=== PATIENT | female | born 1940 | race Caucasian/White ===

== ENCOUNTER 2020-04-10 18:51 | Observation (INO) ==
[2020-04-10] MEDS ORDERED: NORMAL SALINE 1,000 ML IV ONE (19:18)
[2020-04-10] MEDS ORDERED: ONDANSETRON HCL/PF 2 MG/ML VIAL IV ONE (19:18)
[2020-04-10 19:22] LABS: Hematocrit 40.9 % (37.0-47.0); Hemoglobin 13.4 gm/dL (12.5-16.0); Mean Cell Volume 97.6 fl (78-100); Mean Corpuscular Hgb Conc 32.8 g/dl (32-36); Mean Platelet Volume 10.9 fl (8-12.5); Neutrophil # 4.1 K/mm3 (1.3-6.0); Neutrophil % 64.2 % (42-75.0); Platelet Count 188 K/mm3 (150-450); Red Blood Count 4.19 M/mm3 (4.2-5.4); White Blood Count 6.4 K/mm3 (4.0-10.5)
[2020-04-10 19:23] LABS: Methemoglobin % 0.1 % (0.41-1.15)
[2020-04-10 19:39] LABS: Albumin * 3.4 gm/dl (3.4-5.0); Anion Gap 14.7 mmol/L (6.8-13.8); BUN/Creatinine Ratio 21.5 (9.0-21.6); Bilirubin, Total 0.6 mg/dL (0.0-1.1); Ca. Corrected For Albumin 9.8 mg/dL (8.4-10.2); Calcium * 9.6 mg/dL (7.9-10.9); Carbon Dioxide 24.2 mmol/L (24-32.6); Potassium 3.9 mmol/L (3.4-4.6)
--- NOTE | 2020-04-10 20:22 | ERNOTE ---
Dizziness ER Record Date of Service: 04/10/20 Presenting Symptoms: vertigo Time Seen by Provider: 04/10/20 19:05 Source: patient, family, RN notes reviewed Exam Limitations: no limitations Immunizations: IMMUNIZATION HX Immunizations Up to Date Yes History of Influenza Vaccine Yes Hx Pneumococcal Vaccination No Allergies/Adverse Reactions: Allergies Allergy/AdvReac Type Severity Reaction Status Date / Time niacin Allergy Intermediate Anaphylaxis Verified 04/10/20 18:58 Penicillins Allergy itching, Verified 04/10/20 18:58 urticaria Home Medications: HOME MEDICATIONS NK 04/10/20 [Last Taken Unknown] - History of Present Illness Narrative: Angélica is a 80-year-old female brought to the emergency department from home by her daughter for a sudden onset of extreme dizziness and nausea. The patient reports that she had been sewing in her basement for most of the afternoon when she suddenly started to feel dizzy. She had to go outside to get some air and had to sit down and scoot on the ground due to her dizziness. She reports that the dizziness is only present with movement. She has not had any vomiting thus far. She is concerned that there may be a gas leak in her house because there was an odor of sewer and inspector gas in her basement. Her has also had nausea and some vomiting over the past 2 or 3 days. Date (Duration): 04/10/20 Time (Timing): 18:00 Timing and Duration: sudden onset, still present Severity: max: severe Associated Symptoms: Present: nausea. Absent: hearing loss, ringing/roaring in ear, ear pain, headache, weakness Sense of movement: Present: spinning Decreased ability to stand/walk:: Present: difficult, off balance Usually:: Present: walks w/o assistance Modifying Factors - (Improves): Reports: other - rest Modifying Factors - (Worsens): Reports: changing position Prior Treament: Denies: recently seen, similar symptoms before Review of Systems - Review of Systems Constitutional: Absent: recent illness, fever, chills EYE: Absent: eye pain, vision changes ENT: Absent: ear pain, nose congestion, nasal drainage, sore throat Respiratory: Absent: shortness of breath, cough Cardiology: Absent: chest pain, syncope Gastrointestinal/Abdominal: Present: nausea. Absent: vomiting, diarrhea, abdominal pain Genitourinary: Present: no symptoms reported Musculoskeletal: Present: no symptoms reported Skin: Absent: rash, lesions Neurological: Present: dizziness/light-headedness. Absent: headache Endocrine: Present: no symptoms reported Hematologic/Lymphatic: Absent: easy bruising, easy bleeding Psych: Present: anxiety Medical History (Last Reviewed 04/10/20 @ 20:20 by Maliha Rosales NP) Anxiety Onset Date: ~2013 Depression Onset Date: ~2007 Fibromyalgia Onset Date: 08/29/13 GERD (gastroesophageal reflux disease) Onset Date: 08/29/13 Hyperlipidemia Onset Date: 08/29/13 Hypertension Onset Date: Unknown Osteoarthritis Onset Date: Unknown bilateral knees Peripheral neuropathy Onset Date: 08/29/13 Stress incontinence Onset Date: Unknown Allergic rhinitis Onset Date: ~2013 Shortness of breath Onset Date: Unknown Solitary cyst of breast Onset Date: Unknown right Surgical History: Surgical History (Last Reviewed 04/10/20 @ 20:20 by Maliha Rosales NP) History of arthroscopic knee surgery Onset Date: ~1989-bilateral History of breast biopsy Onset Date: Unknown left History of carpal tunnel release Onset Date: ~1989-right History of cataract surgery Onset Date: Unknown bilateral History of section Onset Date: ~1971 History of colonoscopy Onset Date: 08/26/18 08/27/06 Tinguely-tubulovillous adenoma, hyperplastic polyp. Sigmoid diverticulosis. 08/26/18 Ayo-tubulovillous adenoma w/evidence of severe dysplasia. Recheck 3 yrs. History of esophagogastroduodenoscopy (EGD) Onset Date: 07/01/07 07/01/07 Tinguely-hiatal hernia, mild chronic gastritis. History of hemorrhoidectomy Onset Date: ~12/2018 ANNA Brito-hemorrhoid banding x1 History of knee replacement, total Onset Date: ~08/2004 bilateral History of rhinoplasty Onset Date: ~2002 History of sinus surgery Onset Date: 05/18/99 Janeth Hx of laparoscopic gastric banding Onset Date: Unknown Rectal exam Onset Date: 04/20/19 04/20/19 Siri-rectal exam under anesthesia-rectal mass-adenocarcinoma, tubulovillous adenoma. Refer to [facility] Family History: Family History (Last Reviewed 04/10/20 @ 20:20 by Maliha Rosales NP) Father , age 54-[place] No problems noted. Mother , age 85-dementia Rheumatoid arthritis Alzheimers disease Hypertension Cancer breast ca-dx age 70's Grandfather Cancer maternal-prostate Social History: (Last Reviewed 04/10/20 @ 20:20 by Maliha Rosales NP) Social History: Marital status: household members: spouse number of children: 2 current occupational status: retired Service: No Tobacco: Smoking Status: Never smoker Alcohol: alcohol intake: current Substance Use: substance use type: does not use Dietary Habits: caffeine: Yes Personal Safety: victim of physical abuse: No victim of emotional abuse: No Physical Exam - Physical Exam General Appearance: Present: wd/wn, alert, moderate distress Head Exam: Present: normal inspection, no evidence of injury Eye Exam: Other: bilateral - unable to assess, keeps eyes closed d/t vertigo Ears, Nose, Throat: Present: normal ENT inspection, normal pharynx Neck: Present: normal inspection, nontender, supple Respiratory: Present: no respiratory distress, normal breath sounds, no accessory muscle use, lungs clear Cardiovascular/Chest: Present: no murmur, normal peripheral pulses, irregularly irregular Gastrointestinal/Abdominal: Present: nontender, nondistended, soft Extremity Exam: Present: normal inspection, non-tender, extremity edema - bilateral lower extremities Neurological Exam: Present: alert, oriented, normal mood/affect, no motor/sensory deficits Skin Exam: Present: warm/dry, pallor Progress - Results and Orders Patient's Lab Results:: I have reviewed the patient's lab results. - Vital Signs Patient's Vital Signs:: I have reviewed the patient's vital signs. Vital Signs: Vital Signs 04/10/20 18:55 04/10/20 19:06 04/10/20 19:31 Temperature 36.8 C Pulse Rate 93 93 80 Respiratory Rate 16 16 Blood Pressure 191/108 H 180/98 H O2 Sat by Pulse Oximetry 98 98 04/10/20 20:10 Temperature Pulse Rate 77 Respiratory Rate 16 Blood Pressure 165/78 H O2 Sat by Pulse Oximetry 98 - Progress/Reassessment Chief Complaint: Dizziness Progress:: Unchanged Plan - Plan Plan: The patient was given IV fluids and Zofran. She then was assisted to the bathroom where she continued to have severe vertigo with movement and began vomiting. She insists that she is unable to go home. I contacted Dr. Renner, her PCP, and she will be admitted to observation. Departure Clinical Impression: Acute vertigo with vomiting and inability to stand - Departure Disposition: Still a patient Condition: Stable Referrals: Laurel Renner DO [Primary Care Provider] -
[2020-04-10] MEDS ORDERED: ONDANSETRON 4 MG TAB.RAPDIS PO PRN (21:53)
[2020-04-10] MEDS ORDERED: ACETAMINOPHEN 325 MG TABLET PO PRN (21:53)
--- NOTE | 2020-04-11 08:15 | HPDIS ---
Chief Complaint - Chief Complaint Date of Service: 04/11/20 Time of Service: 08:15 Chief Complaint: dizziness History of Present Illness: Patient with rectal adenocarcinoma, currently in remission. Was in the basement all day sewing yesterday, and when she got up, everything was spinning. She called for her , and they both fell over. The dizziness came on suddenly. She was thinking there was a gas leak in the house. She called the [facility], and there was no gas leak. No fevers. No changes in her appetite or fluid intake. No recent medication changes. 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 Vomited on the way to the ED. Workup in the ED showed carboxyhemoglobin levels not significantly elevated at 2.0. CO2 was normal on CMP at 24.2. Her BP was high at 191/108 initially. No other lab abnormalities. EKG not done in the ED, and has been ordered this morning. On my assessment, her dizziness has resolved. She denies complaints, other than needing help caring for her . Medical History (Last Updated 04/10/20 @ 21:[address] RN) Colon cancer Anxiety Onset Date: ~2013 Depression Onset Date: ~2007 Fibromyalgia Onset Date: 08/29/13 GERD (gastroesophageal reflux disease) Onset Date: 08/29/13 Hyperlipidemia Onset Date: 08/29/13 Hypertension Onset Date: Unknown Osteoarthritis Onset Date: Unknown bilateral knees Peripheral neuropathy Onset Date: 08/29/13 Stress incontinence Onset Date: Unknown Allergic rhinitis Onset Date: ~2013 Shortness of breath Onset Date: Unknown Solitary cyst of breast Onset Date: Unknown right Surgical History: Surgical History (Last Reviewed 04/10/20 @ 21:[address] RN) History of arthroscopic knee surgery Onset Date: ~1989 Chaidez-bilateral History of breast biopsy Onset Date: Unknown left History of carpal tunnel release Onset Date: ~1989 Chaidez-right History of cataract surgery Onset Date: Unknown bilateral History of section Onset Date: ~1971 History of colonoscopy Onset Date: 08/26/18 08/27/06 Tinguely-tubulovillous adenoma, hyperplastic polyp. Sigmoid diverticulosis. 08/26/18 Ayo-tubulovillous adenoma w/evidence of severe dysplasia. Recheck 3 yrs. History of esophagogastroduodenoscopy (EGD) Onset Date: 07/01/07 07/01/07 Tinguely-hiatal hernia, mild chronic gastritis. History of hemorrhoidectomy Onset Date: ~12/2018 Daryl [place]-hemorrhoid banding x1 History of knee replacement, total Onset Date: ~08/2004 bilateral History of rhinoplasty Onset Date: ~2002 History of sinus surgery Onset Date: 05/18/99 Janeth Hx of laparoscopic gastric banding Onset Date: Unknown Rectal exam Onset Date: 04/20/19 04/20/19 Bagan-rectal exam under anesthesia-rectal mass-adenocarcinoma, tubulovillous adenoma. Refer to [facility] Family History: Family History (Last Reviewed 04/10/20 @ 21:[address] RN) Father , age 54-[place] No problems noted. Mother , age 85-dementia Rheumatoid arthritis Alzheimers disease Hypertension Cancer breast ca-dx age 70's Grandfather Cancer maternal-prostate Social History: (Last Reviewed 04/10/20 @ 21:[address] RN) Social History: Marital status: household members: spouse number of children: 2 current occupational status: retired Service: No Tobacco: Smoking Status: Never smoker Alcohol: alcohol intake: current Substance Use: substance use type: does not use Dietary Habits: caffeine: Yes Personal Safety: victim of physical abuse: No victim of emotional abuse: No Review Of Systems (GEN) - Review of Systems Generalized/Overall Review: Absent: Fever Respiratory: Absent: Cough, Shortness of Breath Cardiac: Present: Edema - intermittent. hasn't been using her lasix. Absent: Chest Pain Abdominal: Present: Vomiting. Absent: Abdominal Pain Genitourinary: Present: No Symptoms Reported Neurological: Present: Anxiety - regarding 's health Skin: Present: No Symptoms Reported Immunizations: IMMUNIZATION HX Immunizations Up to Date Yes History of Influenza Vaccine Yes Hx Pneumococcal Vaccination No Allergies/Adverse Reactions: Allergies Allergy/AdvReac Type Severity Reaction Status Date / Time niacin Allergy Intermediate Anaphylaxis Verified 04/10/20 18:58 Penicillins Allergy itching, Verified 04/10/20 18:58 urticaria Home Medications: HOME MEDICATIONS NK 04/10/20 [Last Taken Unknown] Exam - Exam Vital Signs: Vital Signs - Last Taken Temp 37.3 C 04/11/20 06:44 Pulse 74 04/11/20 06:44 Resp 14 04/11/20 06:44 BP 145/64 04/11/20 06:44 Pulse Ox 98 04/11/20 06:44 Constitutional: Present: Alert, Cooperative, No distress Respiratory: Present: lungs clear, normal breath sounds, no respiratory distress Cardiovascular/Chest: Present: regular rate, rhythm Abdomen: Present: soft, nontender Extremity: Absent: lower extremity edema Eye contact: Present: cooperative, good eye contact Thoughts: Present: normal thought pattern Diagnostic Studies: Abnormal Lab Results 04/10/20 04/10/20 04/10/20 Range/Units 19:07 19:07 19:15 RBC 4.19 L (4.2-5.4) M/mm3 MCH 32.0 H (27-31) pg Monocytes % 11.3 H (0.0-9) % Lymphocytes # 1.36 L (1.5-3.5) k/mm3 Carboxyhemoglobin 2.0 H (0.5-1.5) % Methemoglobin 0.1 L (0.41-1.15) % Anion Gap 14.7 H (6.8-13.8) mmol/L Random Glucose 123 H (70-110) mg/dL Laboratory Results WBC 6.4 K/mm3 (4.0-10.5) 04/10/20 19:15 RBC 4.19 M/mm3 (4.2-5.4) L 04/10/20 19:15 Hgb 13.4 gm/dL (12.5-16.0) 04/10/20 19:15 Hct 40.9 % (37.0-47.0) 04/10/20 19:15 MCV 97.6 fl (78-100) 04/10/20 19:15 MCH 32.0 pg (27-31) H 04/10/20 19:15 MCHC 32.8 g/dl (32-36) 04/10/20 19:15 RDW 13.0 % (11.5-14.0) 04/10/20 19:15 Plt Count 188 K/mm3 (150-450) 04/10/20 19:15 MPV 10.9 fl (8-12.5) 04/10/20 19:15 Immature Gran % (Auto) 0.20 % (0.001-0.429) 04/10/20 19:15 Immature Gran # (Auto) 0.01 K/mm3 (0.000-0.0310) 04/10/20 19:15 Neutrophils % 64.2 % (42-75.0) 04/10/20 19:15 Lymphocytes % 21.4 % (20-51) 04/10/20 19:15 Monocytes % 11.3 % (0.0-9) H 04/10/20 19:15 Eosinophils % 2.4 % (0.0-3.0) 04/10/20 19:15 Basophils % 0.5 % (0.0-1.0) 04/10/20 19:15 Nucleated RBC % 0.0 k/mm3 (0-1) 04/10/20 19:15 Neutrophils # 4.1 K/mm3 (1.3-6.0) 04/10/20 19:15 Lymphocytes # 1.36 k/mm3 (1.5-3.5) L 04/10/20 19:15 Monocytes # 0.7 k/mm3 (0.0-1.0) 04/10/20 19:15 Eosinophils # 0.2 k/mm3 (0.0-0.7) 04/10/20 19:15 Absolute Basophils 0.0 k/mm3 (0.0-0.1) 04/10/20 19:15 Carboxyhemoglobin 2.0 % (0.5-1.5) H 04/10/20 19:07 Methemoglobin 0.1 % (0.41-1.15) L 04/10/20 19:07 Sodium 138 mmol/L (132-142) 04/10/20 19:07 Plasma Sodium 138 mmol/L (130-142) 04/10/20 19:07 Potassium 3.9 mmol/L (3.4-4.6) 04/10/20 19:07 Chloride 103 mmol/L (97-106) 04/10/20 19:07 Carbon Dioxide 24.2 mmol/L (24-32.6) 04/10/20 19:07 Anion Gap 14.7 mmol/L (6.8-13.8) H 04/10/20 19:07 BUN 17 mg/dL (3-23) 04/10/20 19:07 Creatinine 0.79 mg/dL (0.4-1.4) 04/10/20 19:07 Est GFR (Non-Af Amer) 75 mL/min (60-130) 04/10/20 19:07 BUN/Creatinine Ratio 21.5 (9.0-21.6) 04/10/20 19:07 Random Glucose 123 mg/dL (70-110) H 04/10/20 19:07 Calcium 9.6 mg/dL (7.9-10.9) 04/10/20 19:07 Calcium Adj for Albumin 9.8 mg/dL (8.4-10.2) 04/10/20 19:07 Total Bilirubin 0.6 mg/dL (0.0-1.1) 04/10/20 19:07 AST 33 U/L (0-48) 04/10/20 19:07 ALT 19 U/L (19-67) 04/10/20 19:07 Alkaline Phosphatase 96 U/L (50-170) 04/10/20 19:07 Total Protein 7.0 gm/dL (6.2-8.2) 04/10/20 19:07 Albumin 3.4 gm/dl (3.4-5.0) 04/10/20 19:07 Assessment/Plan - Narrative Narrative: Patient presented to the ED with acute onset dizziness, that resolved without intervention. Her dizziness was so severe in the ED that she did not feel safe going home. No concerning findings on labwork in the ED. EKG showed 1st degree heart block. She was observed overnight to ensure she could tolerate po intake. In the morning, she was back to her baseline. Her BP was initially high, which also improved without intervention, but will need to watch this at upcoming outpatient visits. - Assessment/Plan (1) Acute vertigo with vomiting and inability to stand Problem: Acute (2) Elevated blood pressure reading Problem: Acute (3) Edema Problem: Chronic (1) Acute vertigo with vomiting and inability to stand Problem: Resolved (2) Elevated blood pressure reading Problem: Resolved (3) Edema Problem: Chronic Date of Discharge:: 04/11/20 Hospital Course: see above narrative Procedures Performed: none Results and Findings: Lab Pending Results 04/10/20 19:07: Carboxyhemoglobin 2.0 H, Methemoglobin 0.1 L 04/10/20 19:07: Sodium 138, Plasma Sodium 138, Potassium 3.9, Chloride 103, Carbon Dioxide 24.2, Anion Gap 14.7 H, BUN 17, Creatinine 0.79, Est GFR (Non-Af Amer) 75, BUN/Creatinine Ratio 21.5, Random Glucose 123 H, Calcium 9.6, Calcium Adj for Albumin 9.8, Total Bilirubin 0.6, AST 33, ALT 19, Alkaline Phosphatase 96, Total Protein 7.0, Albumin 3.4 04/10/20 19:15: WBC 6.4, RBC 4.19 L, Hgb 13.4, Hct 40.9, MCV 97.6, MCH 32.0 H, MCHC 32.8, RDW 13.0, Plt Count 188, MPV 10.9, Immature Gran % (Auto) 0.20, Immature Gran # (Auto) 0.01, Neutrophils % 64.2, Lymphocytes % 21.4, Monocytes % 11.3 H, Eosinophils % 2.4, Basophils % 0.5, Nucleated RBC % 0.0, Neutrophils # 4.1, Lymphocytes # 1.36 L, Monocytes # 0.7, Eosinophils # 0.2, Absolute Basophils 0.0 Discharge Location: Home Disposition: Home self-care Condition: Good Discharge Activity: Activity as tolerated Discharge Diet: General/regular food Referrals: Laurel Renner DO [Primary Care Provider] - One Week Complete Home Medications List: Complete Home Medication List: NK 04/10/20
[2020-04-11] MEDS ORDERED: FLU VACC QS2020-21(6MOS UP)/PF 60 MCG/0.5 ML SYRINGE IM ONE (10:00)
[2020-04-11 13:08] VITALS: BP 145/71
== END 2020-04-11 13:05 | disposition home or self-care (01) ==
LOC: ER 18:51 → MS 18:51
PROVIDERS: ADMIT Family Medicine; ATTEND Family Medicine
DX: R03.0 Elevated blood-pressure reading, without diagnosis of hypertension; Z23 Encounter for immunization; R11.10 Vomiting, unspecified; I44.0 Atrioventricular block, first degree; R42 Dizziness and giddiness